=== PATIENT | female | born 1940 | race Caucasian/White ===

== ENCOUNTER 2024-11-05 00:13 | Emergency (ER) | payer MEDICARE, BC ==
[~2024-11-05 00:13] MED LIST: Albuterol/Ipratropium 3.0-0.5 MG/3 ML Neb Soln ONE
[2024-11-05] MEDS ORDERED: Sodium Chloride 0.9% 10 ML Syringe FLUSH PRN (00:16)
[2024-11-05] MEDS: Albuterol/Ipratropium 3.0-0.5 MG/3 ML Neb Soln NEB ONE (00:25)
[2024-11-05] MEDS: methylPREDNISolone Sodium Succinate 125 MG/2 ML SDV IVPUSH ONE (00:25)
[2024-11-05] MEDS: Furosemide 40 MG/4 ML VIAL IVPUSH ONE (00:28)
[2024-11-05 00:35] LABS: BASOPHILS ABSOLUTE AUTO 0.01 K/uL (0.00-0.20); BASOPHILS PERCENT AUTO 0.1 % (0.0-2.0); HEMATOCRIT 25.9 % (34.0-46.0); IMMATURE GRAN ABSOLUTE AUTO 0.03 10^3/uL (0.00-0.50); IMMATURE GRAN PERCENT AUTO 0.3 % (0.0-5.0); LYMPHOCYTES ABSOLUTE AUTO 0.99 K/uL (0.50-3.50); MEAN CORPUSCULAR HEMOGLOBIN 25.7 pg (28.2-33.3); MEAN CORPUSCULAR VOLUME 88.7 fL (84.0-98.0); MONOCYTES ABSOLUTE AUTO 0.21 K/uL (0.00-1.00); MONOCYTES PERCENT AUTO 2.3 % (2.0-14.0); NEUTROPHILS ABSOLUTE AUTO 7.72 K/uL (1.40-7.00); NEUTROPHILS PERCENT AUTO 86.3 % (45.0-80.0); PLATELET COUNT,PLT 406 K/uL (150-350); RED BLOOD CELL COUNT 2.92 M/uL (3.77-5.09); RED CELL DISTRIBUTION WIDTH 23.8 % (11.2-14.1)
[2024-11-05 00:38] LABS: HEMOGLOBIN 7.5 g/dL (11.7-15.5)
[2024-11-05 00:49] LABS: INR 1.6 (0.9-1.1); PROTHROMBIN TIME 15.8 SEC (9.0-11.1)
[2024-11-05 00:57] LABS: LACTIC ACID 1.3 mmol/L (0.4-2.0)
[2024-11-05 01:01] LABS: ALANINE AMINOTRANSFERASE,ALT 19 U/L (12-78); ALBUMIN 2.5 g/dL (3.4-5.0); ALKALINE PHOSPHATASE 181 IU/L (46-116); ASPARTATE AMNIOTRANSFERASE,AST 23 U/L (15-37); BILIRUBIN TOTAL 0.3 mg/dL (0.2-1.0); BLOOD UREA NITROGEN,BUN 42 mg/dL (7-18); CALCIUM 8.3 mg/dL (8.5-10.1); CHLORIDE,CL 102 mmol/L (98-107); CREATININE 2.08 mg/dL (0.51-1.17); GLUCOSE RANDOM 188 mg/dL (70-99); MAGNESIUM 2.2 mg/dL (1.8-2.4); POTASSIUM,K 5.2 mmol/L (3.5-5.1); PRO B-TYPE NATRIUR PEPT,BNPPRO 30115 pg/mL (0-125); PROTEIN TOTAL,TP 7.8 g/dL (6.4-8.2); SODIUM,NA 137 mmol/L (136-145)
[2024-11-05 01:05] LABS: ANION GAP 17.2 meq/L (7-15); ESTIMATED GFR 23 mL/min (>=60)
[2024-11-05 01:07] LABS: BASE EXCESS ARTERIAL,POC -3 mmol/L (-2-3); HCO3 ARTERIAL,POC 24.3 mmol/L (22-26); O2 SATURATION ARTERIAL,POC 97.1 % (95-98); PCO2 ARTERIAL,POC 57 mmHg (35-48); PH ARTERIAL,POC 7.2 pH (7.35-7.45); PO2 ARTERIAL,POC 109 mmHg (83-108); TCO2 ARTERIAL,POC 23.9 mmol/L (23-27)
[2024-11-05 01:48] LABS: CORONAVIRUS COVID-19 NAA NEGATIVE (NEGATIVE); INFLUENZA A NAA NEGATIVE (NEGATIVE); INFLUENZA B NAA NEGATIVE (NEGATIVE); RESPIRATORY SYNCYTIAL VIR NAA NEGATIVE (NEGATIVE)
[2024-11-05 02:54] VITALS: BP 134/71; PULSE 80
== END 2024-11-05 03:15 ==
LOC: LL.ED 00:13
DX: J90 Pleural effusion, not elsewhere classified (principal); N17.9 Acute kidney failure, unspecified; C78.6 Secondary malignant neoplasm of retroperitoneum and peritoneum; R09.02 Hypoxemia; R06.03 Acute respiratory distress; R79.89 Other specified abnormal findings of blood chemistry; Z91.040 Latex allergy status; Z88.2 Allergy status to sulfonamides; Z88.8 Allergy status to other drugs, medicaments and biological substances; Z91.048 Other nonmedicinal substance allergy status; Z88.5 Allergy status to narcotic agent
CPT/HCPCS: 0241U; 36415; 36600; 51702; 71045; 80053; 82803; 83605; 83735; 83880; 84484; 85025; 85610; 87040; 93005; 93010; 94640; 96374; 96375; 99285; 99285-25; J1940; J2919; J7620-GY